=== PATIENT | female | born 1990 | race Caucasian/White ===

== ENCOUNTER 2023-12-14 11:56 | Outpatient (REF) | payer OTHER, SELFPAY ==
[2023-12-14 13:34] LABS: HCG Quantitative 19920 mIU/mL
== END 2023-12-14 11:57 | disposition home or self-care (01) ==
LOC: HO.LAB 11:56
PROVIDERS: Visit Provider Advanced Practice Midwife
DX: Z34.90 Encounter for supervision of normal pregnancy, unspecified, unspecified trimester (principal)
CPT/HCPCS: 36415; 84702

== ENCOUNTER 2023-12-22 12:21 | Outpatient (REF) | payer OTHER, SELFPAY ==
--- NOTE | ~2023-12-22 | US_ITS ---
EXAMINATION: US OBSTETRICAL ULTRASOUND CLINICAL INFORMATION: , irregular menstruation, unspecified. COMPARISON: None available. LMP: November 04, 2023. Gestational age by stated last menstrual period is 6 weeks 6 days. Estimated date of delivery by her stated last menstrual period is August 10, 2024. TECHNIQUE Transabdominal and transvaginal ultrasound images of the pelvis were obtained. This study was presented today December 27, 2023 for interpretation. FINDINGS: There is a single intrauterine gestation with heart rate of 127 bpm. Yolk sac identified. Gestational sac and pole visualized. Several crown-rump length measurements were obtained with examples as follows: [place]-rump length of 1.0 cm correlates with gestational age of 7 weeks 1 day. [place]-rump length of 0.7 cm correlates with gestational age of 6 weeks 4 days. [place]-rump length of 0.5 cm correlates with gestational age of 6 weeks 2 days. Calculated crown-rump length provided 0.83 cm with gestational age 6 weeks 6 days and STEVEN by ultrasound of 08/10/2024. MATERNAL ADNEXA: The right maternal ovary measures 3.6 x 2.8 x 2.8 cm. 1.9 cm right ovarian cyst. The left maternal ovary measures 2.4 x 1.8 x 2.0 cm. No significant free fluid appreciated. Limited visualization due to bowel gas. US/US OB <= 14 weeks fetus IMPRESSION: 1. Single intrauterine gestation with ultrasound gestational age of 6 weeks 6 days +/- 4 days as detailed above. 2. Estimated date of delivery is August 10, 2026 +/- 4 days.
== END 2023-12-22 12:22 | disposition home or self-care (01) ==
LOC: HO.US 12:21
PROVIDERS: PCP Family Medicine; Visit Provider Advanced Practice Midwife
DX: O26.891 Other specified pregnancy related conditions, first trimester (principal); N92.6 Irregular menstruation, unspecified; Z3A.01 Less than 8 weeks gestation of pregnancy
CPT/HCPCS: 76801

== ENCOUNTER 2024-01-03 13:50 | Outpatient (REF) | payer OTHER, SELFPAY ==
[2024-01-03 15:47] LABS: Hematocrit 37.7 % (37.0-47.0); Hemoglobin 12.8 g/dl (12.0-16.0); Mean Corpuscular Hemoglobin 29.6 pg (27.0-33.0); Mean Corpuscular Volume 87.1 fL (80.0-98.0); Mean Platelet Volume 10.3 fL (9.4-12.3); Platelet Count 333 X10*3/uL (160-400); Red Blood Count 4.33 X10*6/uL (4.20-5.50); White Blood Count 10.6 X10*3/uL (4.8-10.8)
[2024-01-03 17:52] LABS: Amphetamine Screen Urine Not Detected (Not Detect); Barbiturates, Urine Not Detected (Not Detect); Benzodiazepines Screen Urine Not Detected (Not Detect); Cannabinoid Screen Urine Not Detected (Not Detect); Cocaine Screen Urine Not Detected (Not Detect); Fentanyl, urine Not Detected (Not Detect); Opiate Screen Urine Not Detected (Not Detect); Phencyclidine Screen Urine Not Detected (Not Detect)
[2024-01-04 07:03] LABS: HBsAGNum1 0.38 S/CO (0.00-0.99); HIV AB/AG Nonreactive (Nonreactive); HIV Num 1 0.06 S/CO (0.00-0.99); Hepatitis B Surface Antigen Negative (Negative); ~HepC Num1 0.12 S/CO (0.00-0.79); ~Hepatitis C Antibody Nonreactive (Nonreactive)
[2024-01-04 07:14] LABS: Syphilis Screen Nonreactive (Nonreactive)
[2024-01-04 19:52] LABS: Rubella IgG Antibody 3.47 Index
[2024-01-16 20:28] LABS: CF Ethnicity NG; Cystic Fibrosis NEGATIVE (NEGATIVE)
== END 2024-01-03 13:51 | disposition home or self-care (01) ==
LOC: HO.LAB 13:50
PROVIDERS: PCP Family Medicine; Visit Provider Advanced Practice Midwife
DX: O26.811 Pregnancy related exhaustion and fatigue, first trimester (principal); O26.891 Other specified pregnancy related conditions, first trimester; O99.341 Other mental disorders complicating pregnancy, first trimester; F90.9 Attention-deficit hyperactivity disorder, unspecified type; R11.0 Nausea; Z3A.08 8 weeks gestation of pregnancy; Z98.890 Other specified postprocedural states; Z79.899 Other long term (current) drug therapy
CPT/HCPCS: 80307; 81220; 85027; 86762; 86780; 86803; 86850; 86900; 87086; 87340; 87389; 99212

== ENCOUNTER 2024-01-03 13:50 | Outpatient (AMB) | payer OTHER, SELFPAY ==
[2024-01-03 13:57] VITALS: BMI 24.4
--- NOTE | 2024-01-03 13:57 | A.OFFVISPN_ITS ---
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: No Allergies Amoxicillin Adverse Reaction (Unknown, Uncoded 01/03/24 15:14) Unknown Medication List - Last Reconciled 01/03/24 by Ying Vo hydroxyzine HCl 25 mg PO BEDTIME [PNV Hum nutrition 1 tab PO DAILY] Is last menstrual period known: Yes Last menstrual period: 11/04/23 Post menopausal: No Patient : No Do you need a note to return to daycare/school/sports/work: Yes PFSH Family History (Updated 01/03/24 @ 14:13 by Ying Vo) Mother Breast CA Cervical cancer Crohn's disease Lupus Father Prostate CA HTN (hypertension) Sister Cervical cancer Maternal Grandmother Lupus Paternal Grandmother No problems noted. 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 Current occupational exposures/hazards: No Cognitive needs: No Hearing needs: No Vision needs: No Female Reproductive History Menstrual Age of Menarche: 11 Duration of menses: 3-5 days Date of last menstrual period: 11/04/23 control method: none Total pregnancies: 3 Full term: 0 Premature: 0 Number of Living Children: 0 Ab induced: 1 Ab spontaneous: 1 Ectopics: 0 Multiple births: 0 Date of last pap smear: 10/13/20 History of abnormal pap smear: Yes History of STI: Yes History History 3 Elective abortions 1 Para 0 Spontaneous abortions 1 Hx # Term Pregnancies 0 Ectopic pregnancies 0 Hx # Pregnancies 0 Multiple births 0 Past Pregnancies Del. Date GA/Weeks Outcome Route Wt Inf Gender Labor Yoko Anesthesia Location Provider Complicate 01/29/22 5 spontaneous 08/31/23 elective Education First Trimester Education Checklist Plans/Education - by Trimester Counseled: Yes HIV and other routine tests: discussed Infectious disease exposure: chicken pox immunity discussed and hepatitis risk discussed Influenza vaccine: discussed Nutrition and weight gain counseling: special diet: discussed Sexual activity: discussed Exercise: discussed Tobacco use: No Alcohol use: No Substance use: No Environmental/home/work hazards: discussed Domestic violence: discussed Travel: discussed Seatbelt use: discussed Toxoplasmosis precautions (cats/raw meat): discussed Risk factors identified by history: discussed Testing education: cystic fibrosis testing education done and group B strep education danger signs: Yes education packet: Child education class information, symptoms, vitamins and iron, diet and weight gain, fish and mercury intake, caffeine use, exercise and activity, sexual activity, x-ray exposure, toxoplasmosis precautions, sauna/hot tub use and dental care Mental health: discussed Anticipated course of care: discussed Indications for ultrasound: discussed Health center information: nature of practice discussed, coverage 24 hours a day and signs of miscarriage reviewed Questionnaire History History : 3 Visit STEVEN Calculator Estimated Delivery Date Method Current WG Current Estimate 08/10/24 LMP (Certain) 8w 4d Other Estimates 08/10/24 Ultrasound #1 8w 4d Expected Delivery Route/Plan OB Visit Log Initial Weight: 124 lb Date -?-?-?-?-?-?-?-?-?-?-?-?- EGA Weight Gest Week Fundal Ht Present FHR move Efface % Edema BP PrePreg We Weight GTT -?-?-?-?-?-?-?-?-?-?-?-?- Glucose LV Protein Blood Type 01/03/24 -?-?-?-?-?-?-?-?-?-?-?-?- 8w 4d 133 lb 5 oz (+9 lb 5 oz) 1 33 lb 5 oz -?-?-?-?-?-?-?-?-?-?-?-?- Notes Visit Date: 01/03/24 Last Updated by: Ying 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 She is with LMP 11/04/23 and STEVEN of 08/10/24. US on 12/22/23 at 6w6d gives STEVEN 08/10/24 and GA today of 8w4d. BMI today is 24.4. Pt reports she is active and works out at the gym 4-5 days per week but has stopped lately as she has fatigue and nausea. We discussed interventions that can help with nausea and orders were sent to pharmacy for B6 and Unisom. Pt has h/o ADHD and was taking Adderal but stopped with diagnosis of . 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 She and her SO Kushal are excited about this and Mary feels well supported by her partner and family. Pt has h/o breast reduction in 2007. 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 Pt reports she has a nephew with autism and Kushal has a daughter with congenital bilateral high frequency hearing loss and an inverse chromosome . Mary has been taking hydroxyzine 25 mg po at bedtime for insomnia for ~6 months, but has stopped this med since her diagnosis of . She was given the folder. 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 She is aware she will [place] [facility] and will be having ultrasounds there as well. First trimester teaching was also reviewed. OB PE is scheduled for 01/24/24. We discussed Panorama test (she would like to know the gender of the fetus). labs were ordered and pt will go to lab today. She was also advised NT US will be ordered and scheduled at [facility] at 10-12 weeks. She will be contacted with appt. [facility] for NT US. Pt verbalizes understanding and agrees with plan. No further questions at this time. Initial Infection History & Risk Profile History of STDs: Yes HIV risk evaluation: low risk Hepatitis B risk evaluation: low risk Patient or partner has history of Genital Herpes: Yes Varicella/chicken pox status: immunized Genetic Screening & Patient Services Coordinator Genetic Screening/Teratology Counseling - Includes patient, baby's father, or anyone in either family with: 1. Patient's age 35 years or older as of estimated date of delivery: No 2. Thalassemia (Latvian, Tajik, Mediterranean, or Background); MCV less than 80: Yes 3. Neural Tube Defect (Meningomyelocele, Spina Bifida, or Anencephaly): No 4. Congenital Heart Defect: No 5. Down Syndrome: No 6. Richard-Sachs (Ashkenazi Buddhism, Cajun, Israeli Pitt): No 7. Tamara Disease (Ashkenazi Buddhism): No 8. Familial Dysautonomia (Ashkenazi Buddhism): No 9. Sickle Cell Disease or Trait (): No 10. Hemophilia or other blood disorders: No 11. Muscular Dystrophy: No 12. Cystic Fibrosis: No 13. Magy's Chorea: No 14. Intellectual disability/Autism: Yes 15. Other inherited genetic or chromosomal disorder: No 16. Maternal Metabolic Disorder (EG,TYPE 1 Diabetes, PKU): No 17. Patient or baby's father had a child with defects not listed above: Yes 18. Recurrent loss or a stillbirth: No 19. Medications (including supplements, vitamins, herbs or otc drugs)/illicit/recreational drugs/alcohol since last menstrual period: No 20. Any other: No Comments/Counseling: FOB's daughter born with bilateral high frequency hearing loss and inverse chromosome, pt has nephew with autism Infection History 1. Live with someone with TB or exposed to TB: No 2. Rash or viral illness since last menstrual period: No 3. Hepatitis B,C: No Other (see comments) Comments: Pt with HSV II with 1 outbreak since LMP 11/04/23 Source: [employer] [place] [employer] Coding Level of Care Code Established Pt Bessy Patient Type Established History Problem Focused Medical Decision Making Low Complexity Diagnoses ADHD (attention deficit hyperactivity disorder) F90.9 at early stage Z34.90 Hx of breast reduction, elective Z98.890 Supervision of normal intrauterine in multigravida in first trimester Z34.81 Time Spent (min) 60 Assessment & Plan Assessment & Plan (1) ADHD (attention deficit hyperactivity disorder): Code(s): F90.9 - Attention-deficit hyperactivity disorder, unspecified type Category: Medical (2) at early stage: Code(s): Z34.90 - Encounter for supervision of normal , unspecified, unspecified trimester Category: Medical (3) Hx of breast reduction, elective: Code(s): Z98.890 - Other specified postprocedural states Category: Surgical (4) Supervision of normal intrauterine in multigravida in first trimester: Code(s): Z34.81 - Encounter for supervision of other normal , first trimester Category: Medical Orders: Orders Complete Blood Count no Diff Today Z32.01 - Encounter for test, result positive, Z34.81 - Encounter for supervision of other normal , first trimester Syphilis Screen Today Z32.01 - Encounter for test, result positive, Z34.81 - Encounter for supervision of other normal , first trimester Varicella IgG Antibody Today Z32.01 - Encounter for test, result positive, Z34.81 - Encounter for supervision of other normal , first trimester Screen Today Z32.01 - Encounter for test, result positive, Z34.81 - Encounter for supervision of other normal , first trimester Rubella IgG Antibody Today Z32.01 - Encounter for test, result positive, Z34.81 - Encounter for supervision of other normal , first trimester CF Carrier Screen Today Z32.01 - Encounter for test, result positive, Z34.81 - Encounter for supervision of other normal , first trimester US OB 1T nuc measure Today Z32.01 - Encounter for test, result positive, Z34.81 - Encounter for supervision of other normal , first trimester, Z36.3 - Encounter for screening for malformations Hepatitis B Surface Antigen Today Z32.01 - Encounter for test, result positive, Z34.81 - Encounter for supervision of other normal , first trimester Hepatitis C Antibody Today Z32.01 - Encounter for test, result positive, Z34.81 - Encounter for supervision of other normal , first trimester Urine Culture Today Z32.01 - Encounter for test, result positive, Z34.81 - Encounter for supervision of other normal , first trimester HIV Ab/Ag Today Z32.01 - Encounter for test, result positive, Z34.81 - Encounter for supervision of other normal , first trimester Drug Screen Urine Today Z32.01 - Encounter for test, result positive, Z34.81 - Encounter for supervision of other normal , first trimester Medications: New pyridoxine (vitamin B6) (Vitamin B-6) may take every 6 - 8 hours for nausea 25 mg PO tid 30 days PRN 90 tabs 3RF nausea doxylamine succinate (Unisom (doxylamine)) 25 mg PO BEDTIME 30 days 30 tabs 3RF
== END 2024-01-03 15:12 | disposition home or self-care (01) ==
LOC: HO.HWS 13:51
PROVIDERS: PCP Family Medicine; Visit Provider Advanced Practice Midwife
DX: F90.9 Attention-deficit hyperactivity disorder, unspecified type (principal); Z34.90 Encounter for supervision of normal pregnancy, unspecified, unspecified trimester; Z98.890 Other specified postprocedural states; Z34.81 Encounter for supervision of other normal pregnancy, first trimester
CPT/HCPCS: 25942

== ENCOUNTER 2024-01-24 14:27 | Outpatient (AMB) | payer OTHER, SELFPAY ==
[2024-01-24 14:28] VITALS: BP 116/58; BMI 24.1
--- NOTE | 2024-01-24 14:28 | MHC.OFFVISPN ---
Intake Vital Signs 01/24/24 14:28 Height 5 ft 2 in Weight 132 lb BMI 24.1 BP 116/58 L Intake Visit Reasons: OB/pe Animal Eviscerator Required: No Information Interpreted: non-clinical & clinical Studio Designer: Studio Designer Present (Cornelio) Allergies Amoxicillin Adverse Reaction (Unknown, Uncoded 01/24/24 14:35) Unknown Medication List - Last Reconciled 01/24/24 by Alem Rogers CNM doxylamine succinate (Unisom (doxylamine)) 25 mg PO BEDTIME 30 days hydroxyzine HCl 25 mg PO BEDTIME [PNV Hum nutrition 1 tab PO DAILY] pyridoxine (vitamin B6) (Vitamin B-6) 25 mg PO tid PRN 30 days Is last menstrual period known: Yes Last menstrual period: 11/04/23 Post menopausal: No Patient : Yes PFSH Surgical History (Updated 01/24/24 @ 14:36 by SANJUANITA Gregory) H/O bilateral breast reduction surgery Family History Mother Breast CA Cervical cancer Crohn's disease Lupus Father Prostate CA HTN (hypertension) Sister Cervical cancer Maternal Grandmother Lupus Paternal Grandmother No problems noted. 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 Date GA/Weeks Outcome Route Wt Inf Gender Labor Yoko Anesthesia Location Provider Complicate 01/29/22 5 spontaneous 08/31/23 elective Questionnaire History History : 3 [place] Depression [place] Depression Scale I have been able to laugh and see the funny side of things: As much as I always could I have looked forward with enjoyment to things: Rather less than I used to I have blamed myself unnecessarily when things went wrong: No, never I have been anxious or worried for no reason: No, not at all I have felt scared of panicky for no very good reason at all: No, not at all Things have been getting on top of me: No, most of the time I have coped quite well I have been so unhappy that I have had difficulty sleeping: No, not at all I have felt sad or miserable: No, not at all I have been so unhappy that I have been crying: No, never The thought of harming myself has occurred to me: Never 2 PHQ Assessment Billing PHQ Assessment Tool: PHQ Assessment 61925 Visit STEVEN Calculator Estimated Delivery Date Method Current WG Current Estimate 08/10/24 LMP (Certain) 11w 4d Other Estimates 08/10/24 Ultrasound #1 11w 4d Expected Delivery Route/Plan Specific Issues/Plans OB Problem List: 33 yr. old ? ? G3 ?P0020 ? ? ?LMP: EDC:08/10/24 ?by dates and u/s ? ? ?Blood type: a pos, ab scr neg Problem List: 1. 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 2. partner has child w chromosomal issue, no visible effect, has hearing loss.., if she discovers more info to consider genetics consult... Testing: Panorama/and or First Tri screen: ? ?risk,( to get panorama 01/24/24) NT scan: done 01/24/24.... AFP: FAS: Glucose: early ?n/a ? 28 wk glucose: ? CBC 1st Tri: 12.8/37.7/333? 28 wk. 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 She has a 33-year-old G3 P 0020. Was planning for a soon but had not started trying but is happy about it. She is taking vitamins she has been nauseous the Unisom helps more than the vitamin B6. 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 She went to [facility] today and had her nuchal translucency ultrasound at [facility] on the 4th floor of the [address] [place] [address], (not [facility] 1st floor as usual). As far she understands the issue with her partner's other child and its chromosomes she is not consequential. Discussed with her that if she has a talk with her partner in finds out otherwise and wishes to avail of genetic counseling on with more information from her partner then we can send a referral to [facility] genetics but it might be challenging without worry formation. She will think about it. I reviewed blood work that she had had done which was all within normal limits she has a positive and not anemic. I sent a referral so that she can get the pandemic of blood work but just as she is about to leave the office information was shared about the patient taking the panoramic order that had been filled out from here and she will go will be tomorrow to the lab the hospital get that done. I will order her anatomy scan ultrasound to be done in about 8-9 weeks at [facility].. We also discussed her history of her be she gets perhaps 2 outbreaks a year and she takes Valtrex when she gets it she only takes 500 b.i.d. it did offer prescription for 1000 he day to take on a p.r.n. basis if she does get an outbreak and I also ordered to refill so the prescription will be available to her for when she turns 36 weeks I discussed that very often prophylaxis from 30/6 weeks on does seem to prevent recurrences Simin that time. She is acutely aware her sensations of prodrome and symptoms she gets and I recommend that she alert who ever is involved in her care team at the time if she does get any of those symptoms prior to labor as it may influence the delivery and that would probably be recommended if there was strong suspicion of an outbreak. I also gave her information about care in other practices at [facility] and elsewhere should she wished to consider that did recommend her considering establishing care with team that will be involved in her earlier on and she is going to consider her options. Alternatively she would continue with care with us and go to [facility] when she is in labor. She had a remote history were then Pap and says all that Pap since then were normal Pap was done with Co testing today and testing for gonorrhea chlamydia trichomoniasis Gardnerella and Nika. She is size equals dates and she is happy to hear the heartbeat. 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 She is with LMP 11/04/23 and STEVEN of 08/10/24. US on 12/22/23 at 6w6d gives STEVEN 08/10/24 and GA today of 8w4d. BMI today is 24.4. Pt reports she is active and works out at the gym 4-5 days per week but has stopped lately as she has fatigue and nausea. We discussed interventions that can help with nausea and orders were sent to pharmacy for B6 and Unisom. Pt has h/o ADHD and was taking Adderal but stopped with diagnosis of . 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 She and her SO Kushal are excited about this and Mary feels well supported by her partner and family. Pt has h/o breast reduction in 2007. 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 Pt reports she has a nephew with autism and Kushal has a daughter with congenital bilateral high frequency hearing loss and an inverse chromosome . Mary has been taking hydroxyzine 25 mg po at bedtime for insomnia for ~6 months, but has stopped this med since her diagnosis of . She was given the folder. We discussed danger signs, MD dye automation operator 24/04 and how to reach MD after hours and to call office during regular business hours. She is aware she will deliver at [facility] and will be having ultrasounds there as well. First trimester teaching was also reviewed. OB PE is scheduled for 01/24/24. We discussed Panorama test (she would like to know the gender of the fetus). labs were ordered and pt will go to lab today. She was also advised NT US will be ordered and scheduled at [facility] at 10-12 weeks. She will be contacted with [facility] for NT US. Pt verbalizes understanding and agrees with plan. No further questions at this time. Initial Infection History & Risk Profile History of STDs: Yes HIV risk evaluation: low risk Hepatitis B risk evaluation: low risk Patient or partner has history of Genital Herpes: Yes Varicella/chicken pox status: immunized Genetic Screening & College Athletic Director Genetic Screening/Teratology Counseling - Includes patient, baby's father, or anyone in either family with: 1. Patient's age 35 years or older as of estimated date of delivery: No 2. Thalassemia (North Korean, Jordanian, Mediterranean, or Background); MCV less than 80: Yes 3. Neural Tube Defect (Meningomyelocele, Spina Bifida, or Anencephaly): No 4. Congenital Heart Defect: No 5. Down Syndrome: No 6. Richard-Sachs (Ashkenazi Caodaism, Cajun, [place] Ca[place] Islander [place]): No 7. Tamara Disease (Ashkenazi Caodaism): No 8. Familial Dysautonomia (Ashkenazi Caodaism): No 9. Sickle Cell Disease or Trait (): No 10. Hemophilia or other blood disorders: No 11. Muscular Dystrophy: No 12. Cystic Fibrosis: No 13. Webb's Chorea: No 14. Intellectual disability/Autism: Yes 15. Other inherited genetic or chromosomal disorder: No 16. Maternal Metabolic Disorder (EG,TYPE 1 Diabetes, PKU): No 17. Patient or baby's father had a child with defects not listed above: Yes 18. Recurrent loss or a stillbirth: No 19. Medications (including supplements, vitamins, herbs or otc drugs)/illicit/recreational drugs/alcohol since last menstrual period: No 20. Any other: No Comments/Counseling: FOB's daughter born with bilateral high frequency hearing loss and inverse chromosome, pt has nephew with autism Infection History 1. Live with someone with TB or exposed to TB: No 2. Rash or viral illness since last menstrual period: No 3. Hepatitis B,C: No Other (see comments) Comments: Pt with HSV II with 1 outbreak since LMP 11/04/23 Source: [employer] Exam Const Constitutional General: cooperative, healthy appearing, comfortable, no acute distress and well developed Nutritional Appearance: average body habitus and well nourished Constitutional Limitations: no limitations [facility] Head: normocephalic and other Teeth and gingiva: dentition normal and gingiva normal Neck Thyroid: Thyroid normal Chest Breast/axilla inspection: normal inspection of the breasts and Other (nipples gabriele well) Breast/axilla palpation: normal palpation of the breasts and normal palpation of the axillae Resp Effort & Inspection: normal respiratory effort Auscultation: clear to auscultation bilaterally Cardio Heart sounds: S1 normal heart sound present and S2 normal heart sound present GI Inspection (GI): normal to inspection General Exam: Yes no CVA tenderness External Female Exam: normal external appearance Speculum exam - vagina: normal appearance of the vagina, normal discharge and other (normal appearance to vaginal secretions) Speculum Exam - Cervix: normal appearance of the cervix Bimanual exam- vagina & uterus: normal bimanual exam, uterine size normal (consistant w dating), consistency normal (consitent w gestational age), uterine mobility normal and uterine shape normal (c/w gestational age) Bimanual Exam- Adnexa, other: normal adnexae, no masses and normal (teaching re kegels done) Pelvic Support: normal (teaching re kegels done) OB/external & speculum: external exam normal Manual OB Exam: other (cervix =long/thick/closed/ and consistent w obstetric history) Coding Level of Care Code [place] Diagnoses at early stage Z34.90 Hx of breast reduction, elective Z98.890 Supervision of normal intrauterine in multigravida in first trimester Z34.81 Encounter for routine screening for malformation using ultrasound Z36.3 Assessment & Plan Assessment & Plan (1) at early stage: Code(s): Z34.90 - Encounter for supervision of normal , unspecified, unspecified trimester Category: Medical (2) Hx of breast reduction, elective: Code(s): Z98.890 - Other specified postprocedural states Category: Surgical (3) Supervision of normal intrauterine in multigravida in first trimester: Code(s): Z34.81 - Encounter for supervision of other normal , first trimester Category: Medical (4) Encounter for routine screening for malformation using ultrasound: Code(s): Z36.3 - Encounter for screening for malformations Category: Medical Orders: Orders Bacterial Vaginosis Panel Today Z34.81 - Encounter for supervision of other normal , first trimester Pap Smear Today Z12.4 - Encounter for screening for malignant neoplasm of cervix US OB /maternal detail 8 Weeks Z34.81 - Encounter for supervision of other normal , first trimester, Z34.90 - Encounter for supervision of normal , unspecified, unspecified trimester, Z36.3 - Encounter for screening for malformations CT NG by PCR Today Z34.81 - Encounter for supervision of other normal , first trimester Medications: New valacyclovir Take 1 tablet p.o. for 3-5 days for a break. Additionally start daily at 36 weeks for prophylaxis. 1,000 mg PO DAILY 30 tabs 2RF
== END 2024-01-24 15:38 | disposition home or self-care (01) ==
PROVIDERS: PCP Family Medicine; Visit Provider Advanced Practice Midwife
DX: Z34.90 Encounter for supervision of normal pregnancy, unspecified, unspecified trimester (principal); Z98.890 Other specified postprocedural states; Z34.81 Encounter for supervision of other normal pregnancy, first trimester; Z36.3 Encounter for antenatal screening for malformations
CPT/HCPCS: 25942; 99213

== ENCOUNTER 2024-01-24 14:27 | Outpatient (REF) | payer OTHER, SELFPAY ==
[2024-01-24 17:56] LABS: CT PCR NOT DETECTED (Not Detect.); NG PCR NOT DETECTED (Not Detect.)
[2024-01-25 13:19] LABS: BV Int Neg Control Negative (Negative); BV Int Pos Control Positive (Positive)
[2024-01-30 06:49] LABS: HPV mRNA E6/E7 rflx Not Detected (Not Detected)
== END 2024-01-24 14:28 | disposition home or self-care (01) ==
LOC: HO.LNP 14:27
PROVIDERS: PCP Family Medicine; Visit Provider Advanced Practice Midwife
DX: Z34.81 Encounter for supervision of other normal pregnancy, first trimester (principal); Z3A.11 11 weeks gestation of pregnancy; Z20.2 Contact with and (suspected) exposure to infections with a predominantly sexual mode of transmission
CPT/HCPCS: 0353U; 87480; 87510; 87624; 87660; 88142; 99212